=== PATIENT | female | born 1995 ===

== ENCOUNTER 2017-05-04 20:09 | Emergency (ER) | payer SELFPAY ==
[2017-05-04 20:54] VITALS: BP 133/67; PULSE 88; RESP 16; TEMP 98.3; O2SAT 99
--- NOTE | 2017-05-04 21:58 | ED PDOC ---
HPI: General Adult Time Seen by Provider: 05/04/17 20:32 Chief Complaint (Nursing): ENT Problem Chief Complaint (Provider): LEft ear pain x 3 days History Per: Patient History/Exam Limitations: no limitations Onset/Duration Of Symptoms: Days Have you had recent travel within the past 21 days to any of the following countries: [place], [place], [place] or [place]?: No Current Symptoms Are (Timing): Still Present Pain Scale Rating Of: 7 Additional Complaint(s): Pt states tylenol arthritis has been helping her pain. Past Medical History Reviewed: Historical Data, Nursing Documentation, Vital Signs Vital Signs: Last Vital Signs Temp 98.3 F 05/04/17 20:51 Pulse 88 05/04/17 20:51 Resp 16 05/04/17 20:51 BP 133/67 05/04/17 20:51 Pulse Ox 99 05/04/17 20:51 - Medical History PMH: No Chronic Diseases Denies: Chronic Kidney Disease - Surgical History Surgical History: No Surg Hx - Family History Family History: States: No Known Family Hx - Living Arrangements Living Arrangements: With Family - Social History Current smoker - smoking cessation education provided: No - Home Medications Home Medications: Ambulatory Orders Medication Instructions Recorded Ciprofloxacin/Hydrocortisone 10 ml XX BID 7 Days mary 05/04/17 [Cipro Hc 0.2%-1% 10 ml] - Allergies Allergies/Adverse Reactions: Allergies Allergy/AdvReac Type Severity Reaction Status Date / Time No Known Allergies Allergy Verified 10/11/14 11:08 Review of Systems ROS Statement: Except As Marked, All Systems Reviewed And Found Negative Constitutional: Negative for: Fever, Chills ENT: Positive for: Ear Pain. Negative for: Ear Discharge, Mouth Pain, Mouth Swelling Physical Exam - Reviewed Nursing Documentation Reviewed: Yes Vital Signs Reviewed: Yes - Physical Exam Appears: Positive for: Well, Non-toxic, No Acute Distress Head Exam: Positive for: ATRAUMATIC, NORMAL INSPECTION, NORMOCEPHALIC Skin: Positive for: Normal Color, Warm, DRY Eye Exam: Positive for: Normal appearance ENT: Positive for: Other ((+) pinna pull and tragel tug on the left, (+) edema and inflammation of the external auditory canal on left ). Negative for: Normal ENT Inspection Neck: Positive for: Normal, Painless ROM Cardiovascular/Chest: Positive for: Regular Rate, Rhythm Respiratory: Positive for: Normal Breath Sounds. Negative for: Accessory Muscle Use, Respiratory Distress Back: Positive for: Normal Inspection Extremity: Positive for: Normal ROM Neurologic/Psych: Positive for: Alert, Oriented - ECG O2 Sat by Pulse Oximetry: 99 Disposition - Clinical Impression Clinical Impression: Otitis externa - Patient ED Disposition Is Patient to be Admitted: No - Disposition Disposition: Routine/Home Disposition Time: 21:56 Condition: STABLE Prescriptions: Ciprofloxacin/Hydrocortisone [Cipro Hc 0.2%-1% 10 ml] 10 ml XX BID 7 Days mary Instructions: Outer Ear Infection
== END 2017-05-04 22:04 | disposition home or self-care (01) ==
LOC: H.ER 20:09
DX: H60.92 Unspecified otitis externa, left ear (principal)